=== PATIENT | male | born 1970 | race Caucasian/White ===

== ENCOUNTER 2016-02-24 13:37 | Outpatient (CLI) | payer OTHER ==
[2013-10-04 14:50] VITALS: BP 132/71
[2016-02-24 14:09] LABS: BASOPHILS % 0.4 (0.0-1.5); EOSINOPHILS % 1.8 % (0.0-6.8); LYMPHOCYTES # 2.6 # k/uL (0.6-4.0); MEAN CORPUSCULAR HEMOGLOBIN 30.1 pg (28.0-34.0); MONOCYTES # 0.5 # k/uL (0.0-0.9); NEUTROPHILS # 6.9 # k/uL (1.4-7.7)
[2016-02-24 14:36] LABS: eGFR (African) > 60; eGFR (Non-African) > 60
--- NOTE | 2016-02-24 20:50 | Diagnostic Imaging Report ---
Name: BRANNON WOO ~~ ~~ : 72 ~~ Acc #: [id number]~~ DOS: Feb 24, 2016 2:08:55 PM AGRICULTURAL PLOW OPERATOR ~~ Mod: CT\SR ~~ Desc: CT ABD & PELVIS W/ CON 1 of 1 [facility] [address] [address] [facility] [address] [place] [address]. [id number] ~ ~ ~ ~ Report Submission Date: Feb 24, 2016 3:11:12 PM AGRICULTURAL PLOW OPERATOR Patient ~ Study Name: BRANNON WOO ~ Date: Feb 24, 2016 2:08:55 PM AGRICULTURAL PLOW OPERATOR ~ Modality Type: CT\SR Gender: M ~ Description: CT ABD & PELVIS W/ CON : 72 ~ Institution: [facility] Physician: WILL BOO ~ ~ ~ ~ HISTORY: 45-year-old male with acute left abdominal pain and fever. COMPARISON: None available. TECHNIQUE: ~Helical CT images of the abdomen and pelvis were performed with 87 ml Omnipaque IV contrast. ~Sagittal and coronal reformatted images were obtained. FINDINGS: CT abdomen: ~There is a calcified lymph node in the right infrahilar region. ~ There is a calcified granuloma in the right lower lobe. ~The liver, spleen, pancreas, right kidney, gallbladder, and adrenal glands are unremarkable. ~ There is a simple cyst in the left renal inferior pole No abdominal aortic aneurysm. ~ CT pelvis: ~No abnormal bowel dilatation, free air, or suspicious adenopathy. ~ There is wall thickening and surrounding fat stranding involving the distal descending colon, with a small amount of free fluid in the left pericolic gutter. ~There is sigmoid colon diverticulosis. ~The prostate is mildly enlarged. ~The appendix and urinary bladder are normal in appearance. ~There is lumbar degenerative disc disease and facet arthropathy. ~There are degenerative changes of the sacroiliac joints with osteophytes projecting anteriorly, greater on the left. ~There are degenerative changes of the hips, greater on the right. ~ IMPRESSION: 1. ~Distal descending colon acute diverticulitis versus focal colitis. ~There is associated low volume free fluid in the left lower quadrant. ~No evidence of pericolic abscess. 2. ~Old granulomatous disease of the chest. 3. ~Mild prostatic hypertrophy. 4. ~Degenerative changes of the spine, sacroiliac joints, and hips. ~ Electronically signed on Feb 24, 2016 3:11:12 PM AGRICULTURAL PLOW OPERATOR by: Flo CULVER
== END 2016-02-24 13:40 ==
LOC: RAD 13:37
PROVIDERS: ATTEND Nurse Practitioner Family
DX: R50.9 Fever, unspecified (principal); R10.31 Right lower quadrant pain
CPT/HCPCS: 36415; 74177; 80053; 85025